=== PATIENT | female | born 1960 | race Caucasian/White ===

== ENCOUNTER 2018-09-14 11:24 | Day surgery (SDC) | payer MEDICARE, OTHER ==
[~2018-09-14 11:24] MED LIST: PROPOFOL INJ 200 MG/20 ML VIAL IV ONE
--- NOTE | 2018-09-14 12:15 | Operative Report ---
Operative Report DATE OF SURGERY: 09/14/18 Operative Report: The risks, benefits and alternatives of the procedure including the risk of bleeding, perforation requiring surgery have been explained to the patient in detail and informed consent has been obtained. The patient is brought back to the endoscopy suite and placed in a left, lateral decubital position. Timeout was called. Propofol medication is administered. A rectal examination is done which did not reveal any masses, tears or fissures. An Olympus videoscope was introduced into the patient's rectum. The scope was then carefully advanced all the way to the cecum. The cecum was identified by the usual anatomical landmarks of the ileocecal valve as well as the appendiceal office. Photodocumentation is obtained. The scope was then sequentially pulled back via the rest segments of the colon including the ascending colon, hepatic flexure, transverse colon, splenic flexure, descending colon and finally into the rectosigmoid portions of the colon. Retroflexion maneuver was performed. The risks benefits and alternatives of the procedure explained to the patient in detail and informed consent is obtained.A GIF Olympus video scope was inserted into the patient's mouth and hypopharynx, the esophagus is identified intubated and insufflated, the scope was then advanced through the esophagus stomach and duodenum, retroflexion maneuver is done, the esophagus stomach and first and second portions of the duodenum examined. PREOPERATIVE DIAGNOSIS: Personal history of polyps. Richardson's esophagus with unknown degree of dysplasia POSTOPERATIVE DIAGNOSIS: Right colon Inflammation status post biopsy. Internal hemorrhoids. Richardson's esophagus status post radiofrequency ablation. Gastritis status post biopsy rule out Helicobacter pylori OPERATION: Colonoscopy with biopsy. EGD with radiofrequency ablation. EGD with biopsy SURGEON: DARINEL BLANCAS ANESTHESIA: LMAC TISSUE REMOVED OR ALTERED: As noted above. COMPLICATIONS: None. ESTIMATED BLOOD LOSS: None. INTRAOPERATIVE FINDINGS: As noted above. PROCEDURE: Patient tolerated the procedure well. No immediate postprocedure complications are noted. Patient discharged in good condition. Discharge date 09/14/2018. Discharge diet: Regular. Discharge activity: Regular. 2-3-week follow-up to discuss findings. Patient is instructed to call the office or proceed to the emergency room should there be any further problems or questions. I will wait on the biopsies.
[2018-09-14 12:54] VITALS: BP 128/69
== END 2018-09-14 12:40 | disposition home or self-care (01) ==
LOC: END 11:24
PROVIDERS: ATTEND Internal Medicine Gastroenterology
DX: K22.719 Barrett's esophagus with dysplasia, unspecified (principal); K29.50 Unspecified chronic gastritis without bleeding; K52.9 Noninfective gastroenteritis and colitis, unspecified; K64.8 Other hemorrhoids; Z86.010 Personal history of colon polyps; K76.0 Fatty (change of) liver, not elsewhere classified; Z88.5 Allergy status to narcotic agent; Z88.2 Allergy status to sulfonamides; F17.210 Nicotine dependence, cigarettes, uncomplicated
CPT/HCPCS: 43239; 43270; 45380; 813; 88305; 88342; J2704

== ENCOUNTER → 2019-08-30 | Outpatient (CLI) | payer MEDICARE, OTHER | LOC: WI 08:06 | PROVIDERS: ATTEND Family Medicine | DX: N63.23 Unspecified lump in the left breast, lower outer quadrant (principal) | CPT/HCPCS: 76642; 77066 ==

== ENCOUNTER 2020-02-29 10:03 | Emergency (ER) | payer MEDICARE, OTHER ==
--- NOTE | 2020-02-29 11:17 | ER Document Report ---
ED General - General Chief Complaint: Shortness Of Breath Stated Complaint: SHORTNESS OF BREATH Time Seen by Provider: 02/29/20 10:38 Primary Care Provider: MATEUS HAN MD [Primary Care Provider] - Follow up as needed TRAVEL OUTSIDE OF THE [place] IN LAST 30 DAYS: No - HPI Notes: Chief complaint: Cough, dyspnea, sputum production and intermittent chest discomfort History of present illness: 59-year-old female 1 pack/day cigarette smoker followed by Dr. Mateus Han with history of COPD noncompliant with use of MDIs presents now with 2-week history progressively worsening symptoms as noted above. Sputum is described as yellow and scant. No hemoptysis. Burning sensation when she takes a deep breath. Mild dyspnea on exertion. No resting dyspnea. No fever or chills. Patient lives alone. She is . Not currently working. Denies known covert exposure or travel outside the area. Also notes that she had a negative COVID test performed by her primary physician about 3 weeks ago. She further indicates that she had a heart catheterization 3 years ago and was told that this was entirely normal. PERC SCORE H no hormone administration A Age>50 D NO PRIOR DVT/PE C no hemoptysis L Leg swelling unilaterally O O2 sat >95% T not tachycardia S no surgery/Trauma recently HEART Score: HISTORY 0 ECG 1 AGE 1 RISK FACTORS 1 TROPONIN 0 TOTAL: 3 If HEART score is = 3 AND both tronponin measurments are normal, the 30 day risk of a major adverse cardiac event (all-cause mortality, myocardia infarction or need for coronary revscularization) is < 1% (Sensitivity 100%, NPV 100%). - Related Data Allergies/Adverse Reactions: morphine Allergy (Verified 02/29/20 11:38) Sulfa (Sulfonamide Antibiotics) Allergy (Verified 02/29/20 11:38) Past Medical History - General Information source: Patient, [facility], [facility] Records - Social History Smoking Status: Current Every Day Smoker Frequency of alcohol use: Rare Drug Abuse: None Family History: Reviewed & Not Pertinent - Past Medical History Cardiac Medical History: Denies: Hx Congestive Heart Failure, Hx Coronary Artery Disease, Hx DVT, Hx Heart Attack, Hx Hypertension, Hx Pulmonary Embolism Pulmonary Medical History: Reports: Hx COPD Denies: Hx Asthma, Hx Bronchitis, Hx Pneumonia Neurological Medical History: Denies: Hx Cerebrovascular Accident, Hx Seizures Endocrine Medical History: Denies: Hx Diabetes Mellitus Type 1, Hx Diabetes Mellitus Type 2 GI Medical History: Reports: Other - History of nonspecific colitis Musculoskeletal Medical History: Denies Hx Arthritis Past Surgical History: Reports: Hx Herniorrhaphy, Hx Hysterectomy - Immunizations Hx Diphtheria, Pertussis, Tetanus Vaccination: No Review of Systems - Review of Systems Notes: Constitutional: Negative for fever. HENT: Negative for sore throat. Eyes: Negative for visual changes. Cardiovascular: As per HPI. Respiratory: As per HPI. Gastrointestinal: Negative for abdominal pain, vomiting or diarrhea. Genitourinary: Negative for dysuria. Musculoskeletal: Negative for back pain. Skin: Negative for rash. Neurological: Negative for headaches, focal weakness or numbness. 10 point ROS negative except as marked above and in HPI. Physical Exam - Vital signs Vitals: Temp Pulse Resp BP Pulse Ox 98.4 F 76 16 107/56 L 100 02/29/20 10:37 02/29/20 10:37 02/29/20 10:37 02/29/20 10:37 02/29/20 10:37 - Notes Notes: GENERAL: Female patient approximately stated age appearing in no acute distress. SKIN: Good turgor no rashes. HEAD: Normocephalic atraumatic. EYES: PERRLA. EOMI. Conjunctivae and sclerae clear. EARS: CANALS AND TMS CLEAR. NOSE: CLEAR. MOUTH: Moist mucosa. Good dentition. No stridor or edema. No drooling. NECK: Supple. No masses or thyromegaly. No adenopathy. Carotids 2+ without bruits. No JVD. BACK: Symmetrical without tenderness. CHEST: Respirations unlabored. No use of accessory muscles. Minimal faint end expiratory wheezes bilaterally. HEART: Regular rhythm. No murmur gallop or rub. ABDOMEN: Soft nontender without masses, organomegaly or rebound. Bowel sounds normally active. No bruits. GENITALIA: Deferred. EXTREMITIES: 1+ edema right lower leg. No calf tenderness. Cap refill less than 1.5 seconds. Dorsalis pedis and posterior tibial pulses 3+ and symmetrical. NEUROLOGICAL: GCS 15. Alert and oriented x3. Normal gait. Fluent speech. Cranial nerves II through XII intact. Sensorimotor and cerebellar normal. Normal tone. PSYCHIATRIC: Slightly flat affect. Course - Re-evaluation Re-evalutation: 02/29/20 14:57 Clinically this lady has acute exacerbation of COPD and acute bronchitis. Chest x-ray shows no infiltrate. BNP is normal. She has some mild swelling of her right lower extremity and for this reason we got an ultrasound which was negative for DVT. Her CBC and her comprehensive metabolic profile are normal. Her troponin is normal. No acute changes noted on EKG. I am going to place patient on some doxycycline 100 mg twice daily for an albuterol metered-dose inhaler. I encouraged her to stop smoking. She can follow-up with her primary care doctor. Findings, clinical impression and plan of treatment have been discussed with patient/family. Understanding of current findings and recommendations has been acknowledged by them and there is agreement regarding disposition and follow-up. - Vital Signs Vital signs: Temp Pulse Resp BP Pulse Ox 98.4 F 76 16 107/56 L 100 02/29/20 10:37 02/29/20 10:37 02/29/20 10:37 02/29/20 10:37 02/29/20 10:37 - Laboratory Result Diagrams: 02/29/20 11:22 02/29/20 11:22 Laboratory results interpreted by me: 02/29/20 11:22 BUN 6 L - EKG Interpretation by Me Additional EKG results interpreted by me: 02/29/20 11:28 Twelve-lead EKG from 1117 hrs. reviewed contemporaneously by me demonstrating normal sinus rhythm with a rate of 69 and a QRS axis of +52 degrees. Intervals are normal. Nonspecific T wave changes. No ST shift. Indication for current study: Chest pain. Interpretation: Nonspecific T wave changes. Discharge - Discharge Clinical Impression: Acute bronchitis, Acute exacerbation of COPD, Cigarette smoking Condition: Stable Disposition: HOME, SELF-CARE Additional Instructions: Return here as needed for new or worsening symptoms: Pain that is worsening or unimproved Uncontrolled vomiting High fever or shaking chills Overall worsening Stop smoking Use prescribed medications as directed. Follow-up with your primary care doctor within the next 1 week. Prescriptions: Doxycycline Monohydrate 100 mg PO BID #20 capsule Albuterol Sulfate [Proair HFA Inhalation Aerosol 8.5 gm MDI] 2 puff IH Q4H PRN #1 mdi PRN Reason: Forms: Smoking Cessation Education Referrals: MATEUS HAN MD [Primary Care Provider] - Follow up as needed
--- NOTE | 2020-02-29 12:05 | RADIOLOGY REPORT (SQ) ---
EXAM DESCRIPTION: CHEST SINGLE VIEW IMAGES COMPLETED DATE/TIME: 02/29/2020 11:47 am REASON FOR STUDY: cough COMPARISON: None. EXAM PARAMETERS: NUMBER OF VIEWS: One view. TECHNIQUE: Single frontal radiographic view of the chest acquired. RADIATION DOSE: NA LIMITATIONS: None. FINDINGS: LUNGS AND PLEURA: No opacities, masses or pneumothorax. No pleural effusion. MEDIASTINUM AND HILAR STRUCTURES: No masses. Contour normal. HEART AND VASCULAR STRUCTURES: Heart normal in size. Normal vasculature. BONES: No acute findings. HARDWARE: None in the chest. OTHER: No other significant finding. IMPRESSION: NO ACUTE RADIOGRAPHIC FINDING IN THE CHEST. TECHNICAL DOCUMENTATION: JOB ID: [id number] 2010 [employer]- All Rights Reserved Reading location - IP/workstation name: [email or web address]
[2020-02-29 12:24] LABS: NT PRO BNP 71 pg/mL (<125)
[2020-02-29 12:28] LABS: TROPONIN I < 0.012 ng/mL
--- NOTE | 2020-02-29 13:37 | RADIOLOGY REPORT (SQ) ---
EXAM DESCRIPTION: VENOUS UNILATERAL LOWER IMAGES COMPLETED DATE/TIME: 02/29/2020 1:27 pm REASON FOR STUDY: RLE swelling/pain COMPARISON: None. TECHNIQUE: Dynamic and static garcia scale and color images acquired of the right leg venous system. S elected spectral images acquired with additional compression and augmentation maneuvers. The contrala teral common femoral vein and saphenofemoral junction were also imaged. Images stored on PACS. LIMITATIONS: None. FINDINGS: COMMON FEMORAL: Normal phasicity, compression and augmentation. No visualized echogenic ma terial on garcia scale. No defects on color images. FEMORAL: Normal compression and augmentation. No visualized echogenic material on garcia scale. No defe cts on color images. POPLITEAL: Normal compression, augmentation. No visualized echogenic material on garcia scale. No defec ts on color images. CALF VESSELS: Normal compression, augmentation. No visualized echogenic material on garcia scale. No de fects on color images. GSV and SSV: Normal compression, augmentation. No visualized echogenic material on garcia scale. No def ects on color images. ANY DEEP VENOUS INSUFFICIENCY: Not evaluated. ANY EVIDENCE OF POPLITEAL CYST: No. OTHER: No other significant finding. CONTRALATERAL COMMON FEMORAL VEIN AND SAPHENOFEMORAL JUNCTION: Normal phasicity, compression and augmentation. No visualized echogenic material on garcia scale. No de fects on color images. IMPRESSION: NO EVIDENCE DVT OR SVT IN THE RIGHT LEG. COMMENT: Preliminary report was called by the technologist to the referring clinician's office at th e time of the exam. TECHNICAL DOCUMENTATION: JOB ID: [id number] 2010 [employer]- All Rights Reserved Reading location - IP/workstation name: [email or web address]
[2020-02-29 14:23] LABS: ABSOLUTE BASOPHILS # (AUTO) 0.1 10^3/uL (0.0-0.2); ABSOLUTE EOSINOPHILS # (AUTO) 0.1 10^3/uL (0.0-0.6); ABSOLUTE LYMPHOCYTES (AUTO) 2.9 10^3/uL (0.5-4.7); ABSOLUTE MONOCYTES (AUTO) 0.7 10^3/uL (0.1-1.4); BASOPHILS % (AUTO) 0.8 % (0-2); EOSINOPHILS % (AUTO) 0.7 % (0-6); HEMATOCRIT 44.2 % (36.0-47.0); HEMOGLOBIN 15.3 g/dL (12.0-15.5); LYMPHOCYTES % (AUTO) 29.5 % (13-45); MEAN CORPUSCULAR HEMOGLOBIN 31.7 pg (27.0-33.4); MEAN CORPUSCULAR HGB CONC 34.5 g/dL (32.0-36.0); MEAN CORPUSCULAR VOLUME 92 fl (80-97); PLATELET COUNT 264 10^3/uL (150-450); RED BLOOD COUNT 4.81 10^6/uL (3.72-5.28); RED CELL DISTRIBUTION WIDTH 13.6 % (11.5-14.0); TOTAL CELLS COUNTED % (AUTO) 100 %; WHITE BLOOD COUNT 9.7 10^3/uL (4.0-10.5)
[2020-02-29 14:35] LABS: ALKALINE PHOSPHATASE 121 U/L (38-126); ANION GAP 7 (5-19); ASPARTATE AMINO TRANSFERASE 18 U/L (14-36); BILIRUBIN,DIRECT 0.3 mg/dL (0.0-0.4); BILIRUBIN,TOTAL 0.4 mg/dL (0.2-1.3); BLOOD UREA NITROGEN 6 mg/dL (7-20); CALCIUM 9.6 mg/dL (8.4-10.2); CARBON DIOXIDE 28 mmol/L (22-30); CHLORIDE 103 mmol/L (98-107); GLUCOSE 108 mg/dL (75-110); TOTAL PROTEIN 6.8 g/dL (6.3-8.2)
[2020-02-29 15:11] VITALS: BP 126/76
--- NOTE | 2020-03-01 10:28 | EKG REPORT ---
SEVERITY:- BORDERLINE ECG - SINUS RHYTHM BORDERLINE T ABNORMALITIES, ANTERIOR LEADS : Confirmed by: Amna Romano MD 01-Mar-2020 10:27:49
== END 2020-02-29 15:20 | disposition home or self-care (01) ==
LOC: ER 10:03
DX: J44.1 Chronic obstructive pulmonary disease with (acute) exacerbation (principal); R06.02 Shortness of breath; R05 Cough; R06.00 Dyspnea, unspecified; R07.9 Chest pain, unspecified; F17.210 Nicotine dependence, cigarettes, uncomplicated; Z91.19 Patient's noncompliance with other medical treatment and regimen; F17.200 Nicotine dependence, unspecified, uncomplicated
CPT/HCPCS: 36415; 71045; 80053; 83880; 84484; 85025; 85379; 93005; 93010; 93971; 99285